=== PATIENT | female | born 1965 | race Caucasian/White ===

== ENCOUNTER 2021-02-08 23:50 | Emergency (ER) | payer SELFPAY ==
--- NOTE | 2021-02-08 23:52 | ED_ITS ---
HPI - Extremity Problem General Chief complaint: Extremity Problem,Nontraumatic Stated complaint: Right foot very swollen Time Seen by Provider: 02/08/21 23:52 Source: patient and family Mode of arrival: Ambulatory Limitations: no limitations History of Present Illness HPI Narrative: 55-year-old smoker with history of kidney stones and migraines presents with a chief complaint of pain and swelling to her right heel over the past few days. She states that she normally wears regular shoes and has been on her feet a lot but due to the pain and swelling she has only been able to wear flip-flops. She denies any injury or systemic symptoms such as fever, chills nor nausea or vomiting. She states her pain is worse with ambulation and improves with rest. MD Complaint: extremity pain and extremity swelling Onset (ago): day(s) Pain Consistency: constant Location: right Quality: burning and aching Radiation: none Relieving factors: rest Exacerbating factors: walking and palpation Associated symptoms: denies other symptoms Related Data Home Medications Medication Instructions Recorded Confirmed pramipexole [Mirapex] 0.125 mg PO HS #0 01/26/17 diazepam 5 mg PO BIDP PRN #0 01/27/17 ondansetron [Zofran ODT] 4 mg SUBLINGUAL Q6HP PRN #20 mg 05/20/17 duloxetine 60 mg PO QDAY #0 05/29/17 lamotrigine [Lamictal] 100 mg PO #0 05/29/17 divalproex 250 mg PO BID #0 06/16/17 propranolol 10 mg PO BID #0 06/16/17 simvastatin 20 mg PO HS #0 06/16/17 Previous Rx's Medication Instructions Recorded [place] 0 dev #30 09/12/16 Syringes: 3ml Luer-Asiya Syringe 25g 0 syr MONTHLY #50 ea 09/12/16 x 1 nystatin [Nyamyc] 100,000 u TP BID PRN #15 gm 04/03/17 phentermine 30 mg PO QAM #30 cap 04/24/17 cyclobenzaprine 5 mg PO BIDP PRN #30 tab 05/29/17 fenofibrate 160 mg PO QDAY #30 tab 05/29/17 omeprazole 20 mg PO QDAY #30 cap 05/29/17 liothyronine [Cytomel] 5 mcg PO QDAY #60 tab 07/10/17 oxycodone-acetaminophen [Percocet] 1 tab PO TIDP PRN #90 tab 08/12/17 cyanocobalamin (vitamin B-12) 1,000 mcg IM X1 #1 vial 08/13/17 levothyroxine 0.15 mg PO QAM #30 tab 08/25/17 simvastatin 20 mg PO HS #30 tab 08/25/17 doxycycline hyclate 100 mg PO BID #20 tab 02/09/21 Allergies Allergy/AdvReac Type Severity Reaction Status Date / Time bupropion [From WELLBUTRIN] Allergy Unknown HIVES Unverified 03/03/18 12:31 aspirin [ASPIRIN] AdvReac Unknown RENAL Unverified 03/03/18 12:31 INSUFF NSAIDS (Non-Steroidal AdvReac Unknown RENAL Unverified 03/03/18 12:31 Anti-Inflamma INSUFF [NSAIDS (NON-STEROIDAL ANTI-INFLAMMA] Review of Systems Constitutional Constitutional: Denies chills, Denies fatigue, Denies fever(s), Denies frequent falls, Denies lethargy and Denies weakness Eyes Eyes: Denies change in vision, Denies eye discharge, Denies irritation and Denies loss of vision ENT Ears, Nose, Mouth, and Throat: Denies change in voice, Denies dizziness, Denies neck pain, Denies sore throat and Denies throat swelling Cardiovascular Cardiovascular: Denies chest pain, Denies irregular heart rhythm, Denies lightheadedness, Denies palpitations, Denies dyspnea, Denies dyspnea on exertion and Denies orthopnea Respiratory Respiratory: Denies cough, Denies dyspnea, Denies dyspnea on exertion and Denies wheezing Gastrointestinal Gastrointestinal: Denies abdominal pain, Denies change in bowel habits, Denies diarrhea, Denies nausea and Denies vomiting Musculoskeletal Musculoskeletal: Denies neck pain and Denies numbness Integumentary/Breasts Skin/Breast: Denies pruritus, Reports erythema, Denies rash, Reports skin pain, Reports skin swelling and Denies wounds Neurologic Neurologic: Denies behavioral changes, Denies confusion, Denies dizziness, Denies frequent falls, Denies loss of vision, Denies numbness and Denies weakness Psychiatric Psychiatric: Denies anxiety, Denies behavioral changes, Denies confusion, Denies depression, Denies homicidal ideation and Denies suicidal ideation Endocrine Endocrine: Denies fatigue, Denies flushing and Denies palpitations Hematologic/Lymphatic Hematologic/Lymphatic: Denies easy bruising Allergic/Immunologic Allergic/Immunologic: Denies urticaria, Denies throat swelling and Denies wheezing Patient History Social History Smoking Status: Current every day smoker Smoking Status: Current every day smoker alcohol intake frequency: 0-2 drinks per day Substance Use Type: does not use Exam Narrative Exam Narrative: GEN: AOx3 and in mild distress EYES: Pupils are equal, round, and reactive to light and accommodation. Extraoccular muscles are intact bilaterally. There is no subconjunctival hemorrhage or exudate. CHEST: Lungs are clear to auscultation bilaterally and free of wheezes, rales, or rhonchi. Heart rate is regular rhythm, there are no murmurs, clicks, rubs, or gallops. There is no chest wall tenderness. ABD: Abdomen is soft and nontender. There is no guarding or rebound. Bowel sounds are normal in all 4 quadrants. There is no mass or organomegaly. EXT: Mild erythema of the skin overlying the posterior right heel with a small, quarter-sized, area of fluctuance and surrounding erythema. No lymphangitis, Achilles is intact, no pain or swelling in the calf. No obvious break in the skin. Otherwise Full painless ROM of all extremities with no loss of sensation or strength. SKIN: Warm, pink, and dry. No erythema or rash Initial Vital Signs Initial Vital Signs: Vital Signs Temperature 97.1 F L 02/08/21 23:55 Pulse Rate 85 02/08/21 23:55 Respiratory Rate 17 02/08/21 23:55 Blood Pressure 143/72 H 02/08/21 23:55 Pulse Oximetry 99 02/08/21 23:55 Procedures Abscess I/D I&D #1: Site: foot Side (if applicable): right Local Anesthetic: lidocaine 1% and with bicarb Amount of anesthesia used (mL): 3 Technique: needle aspiration Amount of fluid expressed (mL): 2 Packing used?: none Complications: pain Course Orders Ordered: Discontinued Medications Hydrocodone Bitart/Acetaminophen (Hydrocodone/Acet 5/325 Prepack) 1 bottle MISC SEEINSTR ONE Stop: 02/09/21 00:28 Last Admin: 02/09/21 00:34 Dose: 1 bottle Documented by: Doxycycline Hyclate (Doxycycline Hyclate 100 Mg Tablet) 100 mg PO NOW ONE Stop: 02/09/21 00:28 Last Admin: 02/09/21 00:34 Dose: 100 mg Documented by: Lidocaine/Sodium Bicarbonate (Lido 1%/Sod Bicarb 8.4% (10ml) 10 Ml Syringe) 10 ml INJ NOW ONE Stop: 02/08/21 23:59 Last Admin: 02/09/21 00:34 Dose: 10 ml Documented by: Vital Signs Vital signs: Vital Signs - 8 hr 02/08/21 23:55 Temperature 97.1 F L Pulse Rate 85 Respiratory Rate 17 Blood Pressure 143/72 H Pulse Oximetry 99 MDM - Extremity (Nontraumatic) MDM Narrative Medical decision making narrative: Multiple diagnoses including infection, clot, and gout considered. Exam and history raise my suspicion of a blister and callus of the heel with some infectious component and mild amount of cellulitis. Very minimal drainage obtained. Patient encouraged to elevate, soak in Epson salts and stay off it for the next few days. There are no systemic findings such as fever or chills. Return precautions given and questions answered to her apparent satisfaction Discharge Plan Departure Patient Disposition: Home Clinical Impression: Cellulitis and abscess of foot Acute foot pain Qualifiers: Laterality: right Qualified Code(s): M79.671 - Pain in right foot Instructions: DI for Cellulitis -- Adult Activity Restrictions/Additional Instructions: *You have been diagnosed with [right heel pain and swelling, likely due to a very small abscess with cellulitis] *What to do: *Take medications as directed *Follow up with your primary care provider in 2-3 days, call for an appointment. Let them know you were seen in the Emergency Department and that we ask that you be seen in follow up *Return to ER if you should have any new, worsening or concerning symptoms, such as [increasing pain, swelling, fever or chills or other bothersome symptoms] Prescriptions: New doxycycline hyclate 100 mg tablet 100 mg PO BID Qty: 20 RF: 0 No Action [place] 0 dev Qty: 30 RF: 0 Syringes: 3ml Luer-Asiya Syringe 25g x 1 0 syr MONTHLY Qty: 50 RF: 0 pramipexole [Mirapex] 0.125 MG tablet 0.125 mg PO HS Qty: 0 RF: 0 diazepam 5 MG tablet 5 mg PO BIDP PRNQty: 0 RF: 0 nystatin [Nyamyc] 15 GM powder 100,000 u TP BID PRNQty: 15 RF: 3 phentermine 30 MG capsule 30 mg PO QAM Qty: 30 RF: 3 ondansetron [Zofran ODT] 4 MG tablet,disintegrating 4 mg Sublingual Q6HP PRNQty: 20 RF: 0 duloxetine 60 MG capsule,delayed release(DR/EC) 60 mg PO QDAY Qty: 0 RF: 0 lamotrigine [Lamictal] 100 MG tablet 100 mg PO Qty: 0 RF: 0 omeprazole 20 MG capsule,delayed release(DR/EC) 20 mg PO QDAY Qty: 30 RF: 3 fenofibrate 160 MG tablet 160 mg PO QDAY Qty: 30 RF: 5 cyclobenzaprine 5 MG tablet 5 mg PO BIDP PRNQty: 30 RF: 3 propranolol 10 MG tablet 10 mg PO BID Qty: 0 RF: 0 simvastatin 20 MG tablet 20 mg PO HS Qty: 0 RF: 0 divalproex 250 MG tablet,delayed release (DR/EC) 250 mg PO BID Qty: 0 RF: 0 liothyronine [Cytomel] 5 MCG tablet 5 mcg PO QDAY Qty: 60 RF: 3 oxycodone-acetaminophen [Percocet] 5 MG/325 MG tablet 1 tab PO TIDP PRNQty: 90 RF: 0 cyanocobalamin (vitamin B-12) 1,000 MCG/1 ML solution 1,000 mcg IM X1 Qty: 1 RF: 11 levothyroxine 150 MCG tablet 0.15 mg PO QAM Qty: 30 RF: 3 simvastatin 20 MG tablet 20 mg PO HS Qty: 30 RF: 1 Stand Alone Forms: Work Release Note
[2021-02-08 23:55] VITALS: BP 143/72; PULSE 85; RESP 17; TEMP 36.2; O2SAT 99; BMI 31.0
[2021-02-09] MEDS: LIDO 1%/SOD BICARB 8.4% (10ML) 10 ML SYRINGE INJ (00:34)
[2021-02-09] MEDS: HYDROCODONE/ACET 5/325 PREPACK 1 BOTTLE MISC (00:34)
[2021-02-09] MEDS: DOXYCYCLINE HYCLATE 100 MG TABLET PO (00:34)
[2021-02-09 00:59] VITALS: BP 144/80; PULSE 71; RESP 18; O2SAT 97
== END 2021-02-09 01:00 | disposition home or self-care (01) ==
PROVIDERS: Emergency Provider Emergency Medicine
DX: L03.115 Cellulitis of right lower limb (principal); L02.611 Cutaneous abscess of right foot; M79.671 Pain in right foot
CPT/HCPCS: 10060; 99283